=== PATIENT | male | born 1960 | race Caucasian/White ===

== ENCOUNTER 2017-08-30 18:15 | Inpatient (IN) | payer OTHER ==
[~2017-08-30] VITALS: Ht 172.7 cm; Wt 62.2 kg
[2017-08-30 19:32] LABS: Basophils # (auto) 0.1 uL; Basophils % (auto) 0.9 % (0.0-2.0); Eosinophils # (auto) 0.1 uL; Eosinophils % (auto) 1.2 % (0.0-7.0); Hematocrit 51.1 % (41.0-53.0); Hemoglobin 16.3 g/dL (13.5-17.5); Lymphocytes # (auto) 1.5 uL; Lymphocytes % (auto) 21.4 % (10.0-50.0); Mean Corpuscular Hemoglobin 29.1 pg (28.0-32.0); Mean Corpuscular Hgb Conc. 31.9 g/dL (32.0-36.0); Mean Corpuscular Volume 91.4 fL (80.0-100.0); Monocytes # (auto) 0.6 uL; Monocytes % (auto) 8.6 % (0.0-12.0); Neutrophils # (auto) 4.8 uL; Neutrophils % (auto) 67.9 % (37.0-80.0); Nucleated Red Blood Cells % 0.1 %; Platelet Count (auto) 157 10^3/uL (140-450); Red Blood Cells 5.59 10^6/uL (4.5-5.90); Red Cell Distribution Width 17.9 % (11.8-14.3); White Blood Cell 7.1 10^3/uL (4.4-10.8)
[2017-08-30 19:50] LABS: Albumin 2.6 g/dL (3.4-5.0); BUN/Creatinine Ratio 17.3; Bilirubin, Total 0.7 mg/dL (0.2-1.0); Calcium 8.2 mg/dL (8.5-10.1); Magnesium 1.9 mg/dL (1.6-2.6); Total Protein 6.3 g/dL (6.4-8.2)
[2017-08-30 21:10] LABS: INR 1.16 (0.9-1.15); Partial Thromboplastin Time 28.6 sec (22.64-33.71); Prothrombin Time 12.7 sec (9.37-12.3)
[2017-08-30] MEDS ORDERED: POTASSIUM CHL 20 Meq TABLET PO ONE (21:15)
[2017-08-30] MEDS ORDERED: cefTRIAXone 1GM/10ml IVPUSH 10 ML IV ONE (21:15)
[2017-08-30] MEDS ORDERED: ONDANSETRON HCL 4 MG/2 ML VIAL IV PRN (22:30)
[2017-08-30] MEDS ORDERED: TEMAZEPAM 15 MG CAP PO PRN (22:30)
[2017-08-30] MEDS ORDERED: ACETAMINOPHEN 325 MG TAB PO PRN (22:30)
[2017-08-30] MEDS ORDERED: FUROSEMIDE 20 MG/2 ML VIAL IV ONE (22:30)
[2017-08-30] MEDS ORDERED: ALBUTEROL SULF 2.5 MG/0.5ML(0.5%) NEB SOLN NEB PRN (22:30)
[2017-08-30] MEDS ORDERED: HYDROcodone-ACET 5/325MG TAB PO PRN (22:30)
[2017-08-30] MEDS ORDERED: MORPHINE SULFATE 4 MG/ML SYR/VIAL IV PRN (22:30)
[2017-08-30] MEDS ORDERED: DEXTROSE (50%) 50ML SYRG IV PRN (22:30)
[2017-08-30] MEDS ORDERED: NITROGLYCERIN 0.4 MG SL TAB SL PRN (22:30)
[2017-08-30] MEDS ORDERED: DOCUSATE SOD 100 MG CAP PO PRN (22:30)
[2017-08-31 00:20] VITALS: BP 117/75
[2017-08-31] MEDS: ACCU-CHEK COMFORT CURVE STRIP VI SCH ×4 (00:23→18:10)
[2017-08-31] MEDS ORDERED: SPIR25TA89 PO (01:09)
[2017-08-31] MEDS ORDERED: ASPI81TA27 PO (01:09)
[2017-08-31] MEDS ORDERED: ENAL2.5T PO (01:09)
[2017-08-31] MEDS ORDERED: METF-370 PO (01:09)
[2017-08-31] MEDS ORDERED: CARV12.544 PO (01:09)
[2017-08-31] MEDS ORDERED: AMIO200T33 PO (01:09)
[2017-08-31] MEDS ORDERED: FURO40TA4 PO (01:09)
[2017-08-31] MEDS ORDERED: ATOR40TA52 PO (01:09)
[2017-08-31] MEDS ORDERED: SITA100T7 PO (01:09)
[2017-08-31 02:58] VITALS: BP 117/75
[2017-08-31 05:00] VITALS: BP 126/64
[2017-08-31 05:46] LABS: Basophils # (auto) 0 uL; Basophils % (auto) 0.7 % (0.0-2.0); Eosinophils # (auto) 0.1 uL; Eosinophils % (auto) 1.2 % (0.0-7.0); Hematocrit 52.7 % (41.0-53.0); Lymphocytes # (auto) 1.8 uL; Lymphocytes % (auto) 25.3 % (10.0-50.0); Mean Corpuscular Hemoglobin 29.7 pg (28.0-32.0); Mean Corpuscular Hgb Conc. 32.4 g/dL (32.0-36.0); Mean Corpuscular Volume 91.7 fL (80.0-100.0); Monocytes # (auto) 0.7 uL; Monocytes % (auto) 9.3 % (0.0-12.0); Neutrophils # (auto) 4.6 uL; Neutrophils % (auto) 63.5 % (37.0-80.0); Nucleated Red Blood Cells % 0.2 %; Platelet Count (auto) 158 10^3/uL (140-450); Red Blood Cells 5.74 10^6/uL (4.5-5.90); Red Cell Distribution Width 17.8 % (11.8-14.3); White Blood Cell 7.2 10^3/uL (4.4-10.8)
[2017-08-31] MEDS ORDERED: FUROSEMIDE 40 MG TAB PO SCH (06:00)
[2017-08-31 06:17] LABS: Potassium 3.2 mmol/L (3.5-5.1)
[2017-08-31] MEDS: InsuLIN REG 1unit/0.01ml Soln (100units/ml) SC SCH ×4 (06:17→18:11)
[2017-08-31 06:21] LABS: Albumin 2.9 g/dL (3.4-5.0); BUN/Creatinine Ratio 19.6; Calcium 8.7 mg/dL (8.5-10.1)
[2017-08-31 06:29] LABS: Bilirubin, Total 0.6 mg/dL (0.2-1.0); Total Protein 6.6 g/dL (6.4-8.2)
[2017-08-31 08:37] VITALS: BP 119/68
[2017-08-31] MEDS: CARVEDILOL 12.5 MG TAB PO SCH ×2 (09:56→22:07)
[2017-08-31] MEDS: ENOXAPARIN SOD 40 MG/0.4 ML SYRINGE SC SCH (09:57)
[2017-08-31] MEDS: FAMOTIDINE 20 MG TAB PO SCH ×2 (09:57→22:08)
[2017-08-31] MEDS: ASPirin 81 mg TAB PO SCH (09:57)
[2017-08-31 12:45] VITALS: BP 117/74
[2017-08-31] MEDS: HYDROcodone-ACET 10/325MG TAB PO PRN ×2 (15:12→18:41)
[2017-08-31] MEDS ORDERED: FUROSEMIDE 20 MG/2 ML VIAL IV ONE (15:30)
[2017-08-31] MEDS ORDERED: cefTRIAXone 1GM/10ml IVPUSH 10 ML IV ONE (15:45)
[2017-08-31] MEDS ORDERED: POTASSIUM CHL 10% (20 MEQ/15ML) 15ml ORAL SOLN PO ONE (15:45)
[2017-08-31] MEDS: ALBUTEROL SULF 2.5 MG/0.5ML(0.5%) NEB SOLN NEB SCH ×2 (19:12→22:48)
[2017-08-31] MEDS: IPRATROPIUM BROM 0.5 MG/2.5ML INH SOL NEB SCH ×2 (19:12→22:48)
[2017-08-31 22:22] VITALS: BP 120/68
[2017-09-01] MEDS: InsuLIN REG 1unit/0.01ml Soln (100units/ml) SC SCH ×4 (00:38→18:50)
[2017-09-01] MEDS: ALBUTEROL SULF 2.5 MG/0.5ML(0.5%) NEB SOLN NEB SCH ×6 (02:42→23:10)
[2017-09-01] MEDS: IPRATROPIUM BROM 0.5 MG/2.5ML INH SOL NEB SCH ×6 (02:42→23:10)
[2017-09-01 05:42] VITALS: BP 125/52
[2017-09-01 06:06] LABS: Hematocrit 50.8 % (41.0-53.0); Hemoglobin 16.4 g/dL (13.5-17.5); Mean Corpuscular Hemoglobin 29.5 pg (28.0-32.0); Mean Corpuscular Hgb Conc. 32.4 g/dL (32.0-36.0); Mean Corpuscular Volume 91.1 fL (80.0-100.0); Platelet Count (auto) 144 10^3/uL (140-450); Red Blood Cells 5.57 10^6/uL (4.5-5.90); Red Cell Distribution Width 17.8 % (11.8-14.3); White Blood Cell 6.6 10^3/uL (4.4-10.8)
[2017-09-01] MEDS: FUROSEMIDE 40 MG/4 ML VIAL IV SCH ×2 (06:24→18:49)
[2017-09-01] MEDS: ACCU-CHEK COMFORT CURVE STRIP VI SCH ×4 (06:25→18:49)
[2017-09-01 07:03] LABS: Potassium 3.4 mmol/L (3.5-5.1)
[2017-09-01 07:10] LABS: Albumin 2.8 g/dL (3.4-5.0); BUN/Creatinine Ratio 16.5; Calcium 8.5 mg/dL (8.5-10.1)
[2017-09-01 07:12] LABS: Bilirubin, Total 0.8 mg/dL (0.2-1.0); Total Protein 6.4 g/dL (6.4-8.2)
[2017-09-01 07:28] LABS: Basophils % (manual) 0 (0.0-2.0); Blast Cells 0; Eosinophils % (manual) 0 (0-7); Metamyelocytes % 0; Myelocytes % 0; Promyelocytes % 0; Reactive Lymphocytes 0
[2017-09-01 08:21] LABS: Band Neutrophils % (manual) 8; Lymphocytes % (manual) 28 (10.0-50.0); Monocytes % (manual) 8 (0-12)
[2017-09-01 08:30] VITALS: BP 99/59
[2017-09-01 09:15] VITALS: BP 142/92
[2017-09-01] MEDS: ENOXAPARIN SOD 40 MG/0.4 ML SYRINGE SC SCH (10:00)
[2017-09-01] MEDS: cefTRIAXone 1GM/10ml IVPUSH 10 ML IV SCH (11:28)
[2017-09-01] MEDS: CARVEDILOL 12.5 MG TAB PO SCH ×2 (11:29→22:01)
[2017-09-01] MEDS: ASPirin 81 mg TAB PO SCH (11:29)
[2017-09-01] MEDS: POTASSIUM CHL 10% (20 MEQ/15ML) 15ml ORAL SOLN GT SCH (11:29)
[2017-09-01] MEDS: FAMOTIDINE 20 MG TAB PO SCH ×2 (11:29→22:01)
[2017-09-01 12:21] VITALS: BP 107/72
[2017-09-01 16:53] VITALS: BP 126/74
[2017-09-01 21:49] VITALS: BP 126/68
[2017-09-02] VITALS (7 sets, daily range): BP systolic 93–136; BP diastolic 50–94
[2017-09-02] MEDS: InsuLIN REG 1unit/0.01ml Soln (100units/ml) SC SCH ×5 (00:15→23:50)
[2017-09-02] MEDS: ACCU-CHEK COMFORT CURVE STRIP VI SCH ×5 (00:15→23:50)
[2017-09-02] MEDS: ALBUTEROL SULF 2.5 MG/0.5ML(0.5%) NEB SOLN NEB SCH ×6 (02:35→22:42)
[2017-09-02] MEDS: IPRATROPIUM BROM 0.5 MG/2.5ML INH SOL NEB SCH ×6 (02:35→22:43)
[2017-09-02 05:44] LABS: Basophils # (auto) 0 uL; Eosinophils # (auto) 0.1 uL; Lymphocytes # (auto) 1.6 uL; Monocytes # (auto) 0.6 uL; Nucleated Red Blood Cells % 0.1 %
[2017-09-02 05:46] LABS: Basophils % (auto) 0.4 % (0.0-2.0); Eosinophils % (auto) 1.5 % (0.0-7.0); Mean Corpuscular Hemoglobin 29.3 pg (28.0-32.0); Mean Corpuscular Hgb Conc. 32.1 g/dL (32.0-36.0); Mean Corpuscular Volume 91.3 fL (80.0-100.0); Monocytes % (auto) 9.6 % (0.0-12.0); Neutrophils % (auto) 63.5 % (37.0-80.0); Platelet Count (auto) 140 10^3/uL (140-450); Red Cell Distribution Width 17.9 % (11.8-14.3); White Blood Cell 6.3 10^3/uL (4.4-10.8)
[2017-09-02] MEDS: FUROSEMIDE 40 MG/4 ML VIAL IV SCH ×2 (05:47→18:56)
[2017-09-02 06:01] LABS: Albumin 2.8 g/dL (3.4-5.0); BUN/Creatinine Ratio 13.1; Bilirubin, Total 0.7 mg/dL (0.2-1.0); Calcium 8.3 mg/dL (8.5-10.1); Potassium 3.2 mmol/L (3.5-5.1); Total Protein 6.8 g/dL (6.4-8.2)
[2017-09-02] MEDS: cefTRIAXone 1GM/10ml IVPUSH 10 ML IV SCH (11:07)
[2017-09-02] MEDS: POTASSIUM CHL 10% (20 MEQ/15ML) 15ml ORAL SOLN GT SCH (11:09)
[2017-09-02] MEDS: ENOXAPARIN SOD 40 MG/0.4 ML SYRINGE SC SCH (11:11)
[2017-09-02] MEDS: FAMOTIDINE 20 MG TAB PO SCH ×2 (11:11→21:54)
[2017-09-02] MEDS: CARVEDILOL 12.5 MG TAB PO SCH ×2 (11:11→21:55)
[2017-09-02] MEDS: ASPirin 81 mg TAB PO SCH (11:15)
[2017-09-02] MEDS: ALPRAZolam 0.5 MG TAB PO SCH ×2 (17:11→21:54)
[2017-09-03] MEDS: ALBUTEROL SULF 2.5 MG/0.5ML(0.5%) NEB SOLN NEB SCH ×6 (02:28→22:13)
[2017-09-03] MEDS: IPRATROPIUM BROM 0.5 MG/2.5ML INH SOL NEB SCH ×6 (02:28→22:13)
[2017-09-03 05:00] VITALS: BP 122/60
[2017-09-03 05:47] LABS: Albumin 2.7 g/dL (3.4-5.0); BUN/Creatinine Ratio 15.4; Bilirubin, Total 0.8 mg/dL (0.2-1.0); Calcium 8.8 mg/dL (8.5-10.1); Potassium 3.3 mmol/L (3.5-5.1); Total Protein 6.9 g/dL (6.4-8.2)
[2017-09-03 05:52] LABS: Basophils # (auto) 0 uL; Eosinophils # (auto) 0.1 uL; Eosinophils % (auto) 1.2 % (0.0-7.0); Hemoglobin 17.7 g/dL (13.5-17.5); Mean Corpuscular Hemoglobin 29.8 pg (28.0-32.0); Monocytes # (auto) 0.6 uL; Monocytes % (auto) 8.8 % (0.0-12.0); Nucleated Red Blood Cells % 0.1 %; Red Cell Distribution Width 17.8 % (11.8-14.3)
[2017-09-03 05:54] LABS: Basophils % (auto) 0.4 % (0.0-2.0); Hematocrit 54.1 % (41.0-53.0); Lymphocytes # (auto) 1.6 uL; Lymphocytes % (auto) 22.3 % (10.0-50.0); Mean Corpuscular Hgb Conc. 32.6 g/dL (32.0-36.0); Mean Corpuscular Volume 91.3 fL (80.0-100.0); Neutrophils # (auto) 4.8 uL; Neutrophils % (auto) 67.3 % (37.0-80.0); Platelet Count (auto) 143 10^3/uL (140-450); Red Blood Cells 5.92 10^6/uL (4.5-5.90); White Blood Cell 7.1 10^3/uL (4.4-10.8)
[2017-09-03] MEDS: FUROSEMIDE 40 MG/4 ML VIAL IV SCH ×2 (06:01→18:38)
[2017-09-03] MEDS: ALPRAZolam 0.5 MG TAB PO SCH ×3 (06:01→22:00)
[2017-09-03] MEDS: ACCU-CHEK COMFORT CURVE STRIP VI SCH ×4 (06:13→23:46)
[2017-09-03] MEDS: InsuLIN REG 1unit/0.01ml Soln (100units/ml) SC SCH ×3 (06:13→18:38)
[2017-09-03 09:42] VITALS: BP 137/87
[2017-09-03] MEDS: cefTRIAXone 1GM/10ml IVPUSH 10 ML IV SCH (10:21)
[2017-09-03] MEDS: POTASSIUM CHL 20 Meq TABLET PO SCH (10:21)
[2017-09-03] MEDS: ASPirin 81 mg TAB PO SCH (10:21)
[2017-09-03] MEDS: FAMOTIDINE 20 MG TAB PO SCH ×2 (10:21→22:05)
[2017-09-03] MEDS: ENOXAPARIN SOD 40 MG/0.4 ML SYRINGE SC SCH (10:22)
[2017-09-03] MEDS: CARVEDILOL 12.5 MG TAB PO SCH ×2 (10:25→22:06)
[2017-09-03 13:22] VITALS: BP 145/99
[2017-09-03] MEDS ORDERED: METOPROLOL TARTRATE 1MG/1ML-5ML VIAL IV ONE (17:15)
[2017-09-03 17:27] VITALS: BP 121/86
[2017-09-03 22:00] VITALS: BP 93/67
[2017-09-04] MEDS: IPRATROPIUM BROM 0.5 MG/2.5ML INH SOL NEB SCH ×4 (02:16→14:12)
[2017-09-04] MEDS: ALBUTEROL SULF 2.5 MG/0.5ML(0.5%) NEB SOLN NEB SCH ×4 (02:16→14:12)
[2017-09-04] MEDS: ALPRAZolam 0.5 MG TAB PO SCH (05:28)
[2017-09-04] MEDS: FUROSEMIDE 40 MG/4 ML VIAL IV SCH (05:30)
[2017-09-04] MEDS: ACCU-CHEK COMFORT CURVE STRIP VI SCH ×2 (05:38→13:19)
[2017-09-04 05:41] VITALS: BP 119/93
[2017-09-04] MEDS: InsuLIN REG 1unit/0.01ml Soln (100units/ml) SC SCH ×3 (05:46→12:00)
[2017-09-04] MEDS: ASPirin 81 mg TAB PO SCH (10:00)
[2017-09-04] MEDS: ENOXAPARIN SOD 40 MG/0.4 ML SYRINGE SC SCH (10:00)
[2017-09-04] MEDS: CARVEDILOL 12.5 MG TAB PO SCH (10:00)
[2017-09-04] MEDS: FAMOTIDINE 20 MG TAB PO SCH (10:00)
[2017-09-04] MEDS: POTASSIUM CHL 20 Meq TABLET PO SCH (10:00)
[2017-09-04] MEDS: cefTRIAXone 1GM/10ml IVPUSH 10 ML IV SCH (10:35)
[2017-09-04 15:41] VITALS: BP 109/67
== END 2017-09-04 18:48 | disposition home health service (06) | DRG 291 ==
LOC: ER 18:20 → TELE 18:21 → TELE-WESTW 23:33
PROVIDERS: ADMIT Nurse Practitioner; ATTEND Family Medicine
DX: I11.0 Hypertensive heart disease with heart failure (principal); J18.1 Lobar pneumonia, unspecified organism; J96.11 Chronic respiratory failure with hypoxia; J96.12 Chronic respiratory failure with hypercapnia; I27.81 Cor pulmonale (chronic); J44.0 Chronic obstructive pulmonary disease with (acute) lower respiratory infection; J44.1 Chronic obstructive pulmonary disease with (acute) exacerbation; I50.43 Acute on chronic combined systolic (congestive) and diastolic (congestive) heart failure; I25.110 Atherosclerotic heart disease of native coronary artery with unstable angina pectoris; E11.65 Type 2 diabetes mellitus with hyperglycemia; E66.01 Morbid (severe) obesity due to excess calories; E78.5 Hyperlipidemia, unspecified; E87.6 Hypokalemia; F17.210 Nicotine dependence, cigarettes, uncomplicated; G47.33 Obstructive sleep apnea (adult) (pediatric); I25.2 Old myocardial infarction; Z68.20 Body mass index [BMI] 20.0-20.9, adult; Z82.49 Family history of ischemic heart disease and other diseases of the circulatory system; Z95.1 Presence of aortocoronary bypass graft; Z99.81 Dependence on supplemental oxygen
CPT/HCPCS: 36415; 36600; 71045; 80053; 82805; 82962; 83605; 83735; 83880; 84443; 84484; 85007; 85025; 85027; 85610; 85730; 87040; 93005; 93306; 94640; 94761; 96372; 96374; 96375; J1815